=== PATIENT | male | born 1980 | race African-American/Black ===

== ENCOUNTER 2019-02-26 18:09 | Inpatient (IN) ==
[2019-02-26] MEDS ORDERED: KETOROLAC TROMETHAMINE 15 MG/ML VIAL IV STA (18:46)
[2019-02-26] MEDS ORDERED: ONDANSETRON INJ 2 MG/ML 2 ML VIAL IV STA (18:46)
[2019-02-26] MEDS ORDERED: SODIUM CHLORIDE 0.9% 1000ML 2,000 ML IV SCH (19:00)
[2019-02-26 19:07] LABS: Basophils # (auto) 0.02 K/uL (0-0.2); Basophils % (auto) 0.5 %; Eosinophils # (auto) 0.05 K/uL (0-0.5); Eosinophils % (auto) 1.2 %; Hematocrit (blood only) 32.1 % (42-52); Hemoglobin 11.1 g/dL (14.0-18.0); Immature Granulocytes # (auto) 0.02 K/uL (0.00-0.02); Immature Granulocytes % (auto) 0.5 %; Lymphocytes # (auto) 0.57 K/uL (1.2-3.4); Lymphocytes % (auto) 13.9 %; Mean Corpuscular Hgb Conc 34.6 g/dL (32-36); Mean Corpuscular Volume 77.7 fL (80-100); Mean Platelet Volume 10.6 fL (7.4-10.4); Monocytes # (auto) 0.38 K/uL (0.11-0.59); Monocytes % (auto) 9.2 %; Neutrophils # (auto) 3.07 K/uL (1.4-6.5); Neutrophils % (auto) 74.7 %; Platelet Count 148 K/uL (130-400); RDW Coefficient of Variation 13.8 % (11.5-14.5); RDW Standard Deviation 39.6 fL (36.4-46.3); Red Blood Count 4.13 M/uL (4.7-6.1); White Blood Count 4.11 K/uL (4.8-10.8)
[2019-02-26 19:22] LABS: INR 1.2 (0.9-1.1); Prothrombin Time 12.1 Seconds (9.0-12.0)
[2019-02-26 19:32] LABS: Albumin Globulin Ratio 0.4 (0.9-2); Albumin Level 2.3 gm/dl (3.4-5.0); BUN Creatinine Ratio 9.3 (10-20); Bilirubin,Total 0.3 mg/dl (0.2-1); Calcium 8.6 mg/dl (8.5-10.1); Creatinine Clr Calc Pharmacy 38.1 ml/min; Est GFR (African American) 43.4; Est GFR (Non-African American) 37.4; Globulin 5.6 gm/dl (2.5-4.0); Total Protein 7.9 gm/dl (6.4-8.2)
--- NOTE | 2019-02-26 19:43 | XRay Report ---
XR chest 1V portable CLINICAL HISTORY: weak dyspnea COMPARISON STUDY: No previous studies for comparison. FINDINGS: The bones soft tissues and hemidiaphragms are normal. The cardiomediastinal silhouette is n ormal. The lungs are clear. The pulmonary vasculature is normal. IMPRESSION: Negative chest. The above report was generated using voice recognition software. It may contain grammatical, syntax or spelling errors. Electronically signed by: Lisandro Yang M.D. 02/26/2019 7:41 PM
[2019-02-26 19:45] LABS: Beta-Hydroxybutyrate 5.54 mg/dl (0.2-2.81)
--- NOTE | 2019-02-26 21:07 | CT Scan Report ---
CT head/brain wo con CT DOSE: 537.48 mGy.cm HISTORY: Mental status change dizzy TECHNIQUE: Multiaxial CT images of the head were performed without the use of intravenous contrast. A dose lowering technique was utilized adhering to the principles of ALARA. Comparison: None. Findings: The paranasal sinuses and mastoid air cells are clear. The calvarium and skull base are int act. The ventricles and sulci are within normal limits. There is no mass, hematoma, midline shift, or acute infarct. Impression: No acute intracranial abnormality. The above report was generated using voice recognition software. It may contain grammatical, syntax or spelling errors. Electronically signed by: Lisandro Yang M.D. 02/26/2019 9:05 PM
--- NOTE | 2019-02-26 21:11 | CT Scan Report ---
CT abd pelvis wo con CT DOSE: 349.20 mGy.cm HISTORY: Pain. Nausea. abd pain TECHNIQUE: Multiaxial CT images of the abdomen and pelvis were performed without contrast. A dose lo wering technique was utilized adhering to the principles of ALARA. COMPARISON STUDY: None. FINDINGS: Lung bases are clear. Liver spleen and pancreas are unremarkable. Kidneys negative for hydronephrosis. There is a slight degree of perinephric fat infiltrative change bilaterally. No evidence for an obstructing urinary tract calculus. Bowel pattern is nonobstructive. Normal appendix. Mild bladder wall thickening. No bladder calcifications. No free fluid within the pelvic cul-de-sac. IMPRESSION: 1. Minimal to mild perinephric infiltrative change bilaterally. 2. Mild bladder wall thickening. 3. Evaluation for urinary tract infection, cystitis, pyelonephritis is recommended. 4. Study is otherwise negative. The above report was generated using voice recognition software. It may contain grammatical, syntax or spelling errors. Electronically signed by: Lisandro Yang M.D. 02/26/2019 9:10 PM
[2019-02-26 21:33] LABS: Appearance Urine Cloudy (Clear); Bacteria Urine Automated 4+ (Negative); Bilirubin Urine Negative (Negative); Blood Urine 3+ (Negative); Color Urine Yellow; Epithelial Cell Urine Auto 20-30 /lpf (0-5); Glucose Urine UA 3+ (Negative); Ketones Urine Negative (Negative); Leukocyte Esterase Urine Negative (Negative); Nitrite Urine Positive (Negative); Protein Urine 4+ (Negative); Specific Gravity Urine 1.027 (1.000-1.030); Urobilinogen Urine Negative (Negative); WBC Urine Automated >30 /hpf (0-5)
[2019-02-26] MEDS ORDERED: cefTRIAXone SODIUM 1,000 MG/50 ML BAG IV STA (21:56)
[2019-02-26] MEDS ORDERED: POTASSIUM CHLORIDE 20 MEQ TABCR PO STA (23:27)
--- NOTE | 2019-02-27 00:05 | History & Physical Report ---
Date of Service February 27, 2019 The patient was seen and examined on 02/26/19. Assessment & Plan (1) HIV (human immunodeficiency virus infection): Unknown status of CD4 count. Patient reports and being on medications for the last couple years. He plans on being in the [facility] for 2 weeks, then will be in [place] for 2 weeks, and then will be returning to his home in the [facility]. Unknown at this point how much his status is currently contributing to his symptoms. Present on Admission?: Yes (2) Acute kidney injury (nontraumatic): Creatinine upon admission is 2.15, with unknown baseline. Patient was asked if he had ever been told that he had abnormal kidney function, and he reports no, so this is presumed to be KRISTOPHER on that basis. He received 2 L normal saline in the ED, and will continue normal saline at 100 mils per hour. Repeat CBC with differential, basic metabolic panel and magnesium level in the a.m. Present on Admission?: Yes (3) Pyelonephritis: Patient has not have any overt urinary symptoms at this point. Urinalysis looks abnormal. CT suggests mild bladder wall thickening, with mild bilateral perinephric stranding. Suggestive of an enlarged prostate with possible mild chronic bladder outlet obstruction. Alva urine culture and sensitivity. Symptoms of nausea and vomiting may be secondary to systemic illness associated with pyelonephritis. Continue ceftriaxone begun in the ED. Infectious disease will be consulted to follow HIV state and infectious state in general. Present on Admission?: Yes (4) Hypokalemia: Give Klor-Con 40 mEq p.o. x1 tonight, and repeat laboratories in the a.m. Present on Admission?: Yes (5) Hyperglycemia: Patient is unaware of any history of diabetes. Glucose on admission laboratories was 313. We will place on Accu-Cheks before meals and at bedtime with NovoLog coverage per scale. We will check a hemoglobin A1c. Present on Admission?: Yes (6) Hypoalbuminemia: Albumin upon admission laboratories was 2.3. Does not show any signs of anasarca, localized edema or ascites. Present on Admission?: Yes (7) Anemia: Unsure whether this is a chronic or acute issue. Work-up is limited based on the amount of time patient has an area. We will Hemoccult her stools. Present on Admission?: Yes (8) Intractable nausea and vomiting: Zofran 4 mg IV every 6 hours as needed.. IV fluid rehydration as noted above. Present on Admission?: Yes (9) Hypertension: Hydralazine 10 mg IV every 4 hours as needed systolic blood pressure greater than 160. Start Cardizem 30 mg p.o. 4 times daily. Present on Admission?: Yes History of Present Illness Chief Complaint: Patient presents to the emergency department with complaint of nausea and vomiting that he presumed was associated with food intake, as he tends to be sensitive to a number of different types of foods. Primary Care Provider: NO PCP The patient is a 38-year-old male with PMH including HIV, not on medications for at least 2 years, with multiple food sensitivities, who presents to the emergency department with nausea and vomiting. He is from the [facility], and is presently working in the [employer] for 2 weeks, with plans to then work in the [place] area for 2 weeks, and will then be returning to [place]. He has noted some mild abdominal discomfort, but has no other complaints related to bowel function or urinary function. He has noted above, does have a history of recurrent nausea and vomiting associated with food sensitivities, but does not tend to have issues with either diarrhea or recurrent urinary tract infections. 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 Beliefs That Will Affect Care: None Current Living Situation: Other Current Living Situation Comment: mostly hotel room/mom's house Other Information That Helps Us Care for You: No Feels Safe at Home: Yes Safety Concerns: Feels Safe At This Time Smoking Status: Current some day smoker Tobacco Type: cigarettes Cigarettes Per Day: 1 Do You Dip or Chew Tobacco: No Second Hand Exposure: No Tobacco Cessation Education Requested by Patient: No Hx Alcohol Use: No Hx Substance Use: No Review of Systems Review of Systems: The patient denies chest pain, palpitations, shortness of breath, dyspnea on exertion, cough, lower extremity swelling, sore throat, fevers, chills, diarrhea, constipation, Blood in urine or stool, dysuria, urinary frequency or urgency, lightheadedness, dizziness, headache, memory loss, loss of consciousness, rash, abnormal bruising or bleeding, imbalance, focal or generalized weakness, numbness or tingling in arms or legs, generalized arthralgias or myalgias, back or neck pain, or night sweats. The review of systems is otherwise negative other than for that already noted above, and at least 10 systems have been reviewed. Physical Exam Physical Exam: The patient is awake, alert and oriented 3, well developed and well nourished, normocephalic and atraumatic, lying in bed and in no acute distress. HEENT--PERRL, EOMI, mucous membranes and oropharynx dry. Neck--supple. No JVD. No bruits. Thyroid normal, trachea midline, no adenopathy. Heart--normal S1 and S2. No murmurs, rubs or gallops. Lungs--clear bilaterally, no respiratory distress, no accessory muscle use. Abdomen--normal bowel sounds and soft. Nontender. Nondistended. Extremities--no cyanosis or clubbing. No edema. There are good distal pulses b/l. Dermatologic--normal skin turgor, normal color, no abnormal lymph nodes, no rash. Neurologic--cranial nerves II through XII grossly intact. Rheumatologic--normal range of motion. Psychiatric--normal affect. Results & Data Vital Signs (Past 12 Hours) Vital Signs Temp Pulse Pulse Resp BP BP Pulse Ox 02/26/19 23:02 89 16 176/129 H 100 02/26/19 22:06 87 18 175/115 H 99 02/26/19 20:29 83 18 160/109 H 97 02/26/19 18:12 97.5 F L 96 H 16 171/118 H 100 Laboratory Results Laboratory Results WBC 4.11 K/uL (4.8-10.8) L 02/26/19 18:57 RBC 4.13 M/uL (4.7-6.1) L 02/26/19 18:57 Hgb 11.1 g/dL (14.0-18.0) L 02/26/19 18:57 Hct 32.1 % (42-52) L 02/26/19 18:57 MCV 77.7 fL (80-100) L 02/26/19 18:57 MCH 26.9 pg (25-34) 02/26/19 18:57 MCHC 34.6 g/dL (32-36) 02/26/19 18:57 RDW Std Deviation 39.6 fL (36.4-46.3) 02/26/19 18:57 RDW Coeff of Jose 13.8 % (11.5-14.5) 02/26/19 18:57 Plt Count 148 K/uL (130-400) 02/26/19 18:57 MPV 10.6 fL (7.4-10.4) H 02/26/19 18:57 Immature Gran % (Auto) 0.5 % 02/26/19 18:57 Neut % (Auto) 74.7 % 02/26/19 18:57 Lymph % (Auto) 13.9 % 02/26/19 18:57 Bureau % (Auto) 9.2 % 02/26/19 18:57 Eos % (Auto) 1.2 % 02/26/19 18:57 Baso % (Auto) 0.5 % 02/26/19 18:57 Immature Gran # (Auto) 0.02 K/uL (0.00-0.02) 02/26/19 18:57 Neut # (Auto) 3.07 K/uL (1.4-6.5) 02/26/19 18:57 Lymph # (Auto) 0.57 K/uL (1.2-3.4) L 02/26/19 18:57 Bureau # (Auto) 0.38 K/uL (0.11-0.59) 02/26/19 18:57 Eos # (Auto) 0.05 K/uL (0-0.5) 02/26/19 18:57 Baso # (Auto) 0.02 K/uL (0-0.2) 02/26/19 18:57 PT 12.1 Seconds (9.0-12.0) H 02/26/19 18:57 INR 1.2 (0.9-1.1) H 02/26/19 18:57 Sodium 136 mmol/L (136-145) 02/26/19 18:57 Potassium 3.0 mmol/L (3.5-5.1) L 02/26/19 18:57 Chloride 102 mmol/L (98-107) 02/26/19 18:57 Carbon Dioxide 26 mmol/L (21-32) 02/26/19 18:57 Anion Gap 7.0 (3-11) 02/26/19 18:57 BUN 20 mg/dl (7-18) H 02/26/19 18:57 Creatinine 2.15 mg/dl (0.6-1.4) H 02/26/19 18:57 Est Cr Clr Drug Dosing 38.1 ml/min 02/26/19 18:57 Est GFR ( Amer) 43.4 02/26/19 18:57 Est GFR (Non-Af Amer) 37.4 02/26/19 18:57 BUN/Creatinine Ratio 9.3 (10-20) L 02/26/19 18:57 Glucose 313 mg/dl (70-99) H* 02/26/19 18:57 POC Glucose 288 (70-99) H 02/27/19 00:16 Calcium 8.6 mg/dl (8.5-10.1) 02/26/19 18:57 Total Bilirubin 0.3 mg/dl (0.2-1) 02/26/19 18:57 AST 21 U/L (15-37) 02/26/19 18:57 ALT 24 U/L (12-78) 02/26/19 18:57 Alkaline Phosphatase 143 U/L (45-117) H 02/26/19 18:57 Total Protein 7.9 gm/dl (6.4-8.2) 02/26/19 18:57 Albumin 2.3 gm/dl (3.4-5.0) L 02/26/19 18:57 Globulin 5.6 gm/dl (2.5-4.0) H 02/26/19 18:57 Albumin/Globulin Ratio 0.4 (0.9-2) L 02/26/19 18:57 Lipase 160 U/L (73-393) 02/26/19 18:57 Beta-Hydroxybutyric Acd 5.54 mg/dl (0.2-2.81) H 02/26/19 18:57 Urine Color Yellow 02/26/19 21:20 Urine Appearance Cloudy (Clear) H 02/26/19 21:20 Urine pH 6.0 (4.5-7.5) 02/26/19 21:20 Ur Specific Fertile 1.027 (1.000-1.030) 02/26/19 21:20 Urine Protein 4+ (Negative) H 02/26/19 21:20 Urine Glucose (UA) 3+ (Negative) H 02/26/19 21:20 Urine Ketones Negative (Negative) 02/26/19 21:20 Urine Blood 3+ (Negative) H 02/26/19 21:20 Urine Nitrite Positive (Negative) H 02/26/19 21:20 Urine Bilirubin Negative (Negative) 02/26/19 21:20 Urine Urobilinogen Negative (Negative) 02/26/19 21:20 Ur Leukocyte Esterase Negative (Negative) 02/26/19 21:20 Urine WBC (Auto) >30 /hpf (0-5) H 02/26/19 21:20 Urine RBC (Auto) 10-30 /hpf (0-4) H 02/26/19 21:20 U Hyaline Cast (Auto) 10-30 /lpf (0-5) H 02/26/19 21:20 U Epithel Cells (Auto) 20-30 /lpf (0-5) H 02/26/19 21:20 Urine Bacteria (Auto) 4+ (Negative) H 02/26/19 21:20 Urine Yeast Not Reportable 02/26/19 21:20 Diagnostic Findings [facility], [place] [phone] CT Scan Report Patient: BETTIE HARVEY Date: 02/26/19 MR#: [id number]: 115 DINO Acct ID:[id number]: Date: 1980ty Zip: [place] [address] Age: 38Location: ED Sex: M Room/Bed: Att Phy: Diagnosis: DISORIENTED, VOMITING, WEAKNESS Mary Phy: PCP,NO Service Date: 02/26/19 Fam Phy: Interpreting Phy: Lisandro Yang MD Admit Phy: Ordering Phy: Kwabena López DO cc: ~ CT head/brain wo con CT DOSE: 537.48 mGy.cm HISTORY: Mental status change dizzy TECHNIQUE: Multiaxial CT images of the head were performed without the use of intravenous contrast. A dose lowering technique was utilized adhering to the principles of ALARA. Comparison: None. Findings: The paranasal sinuses and mastoid air cells are clear. The calvarium and skull base are intact. The ventricles and sulci are within normal limits. There is no mass, hematoma, midline shift, or acute infarct. Impression: No acute intracranial abnormality. The above report was generated using voice recognition software. It may contain grammatical, syntax or spelling errors. Electronically signed by: Lisandro Yang M.D. 02/26/2019 9:05 PM Dictated: 02/26/192104 Transcribed: 02/26/192104 [facility], [place] [phone] XRay Report Patient: BETTIE HARVEY RAdmit Date: 02/26/19 MR#: [id number]: 115 SUN Acct ID:[id number]: Date: 1980[facility] Zip: [place] [address] Age: 38Location: ED Sex: M Room/Bed: Att Phy: Diagnosis: DISORIENTED, VOMITING, WEAKNESS Mary Phy: PCP,NO Service Date: 02/26/19 Fam Phy: Interpreting Phy: Lisandro Yang MD Admit Phy: Ordering Phy: Kwabena López DO cc: ~ XR chest 1V portable CLINICAL HISTORY: weak dyspnea COMPARISON STUDY: No previous studies for comparison. FINDINGS: The bones soft tissues and hemidiaphragms are normal. The cardiomediastinal silhouette is normal. The lungs are clear. The pulmonary vasculature is normal. IMPRESSION: Negative chest. The above report was generated using voice recognition software. It may contain grammatical, syntax or spelling errors. Electronically signed by: Lisandro Yang M.D. 02/26/2019 7:41 PM [facility], [place] [phone] CT Scan Report Patient: BETTIE HARVEY RAdmit Date: 02/26/19 MR#: [id number]: 115 DINO Acct ID:[id number]: Date: 1980[facility] Zip: [place] [address] Age: 38Location: ED Sex: M Room/Bed: Att Phy: Diagnosis: DISORIENTED, VOMITING, WEAKNESS Mary Phy: PCP,NO Service Date: 02/26/19 Fam Phy: Interpreting Phy: Lisandro Yang MD Admit Phy: Ordering Phy: Kwabena López DO cc: ~ CT abd pelvis wo con CT DOSE: 349.20 mGy.cm HISTORY: Pain. Nausea. abd pain TECHNIQUE: Multiaxial CT images of the abdomen and pelvis were performed without contrast. A dose lowering technique was utilized adhering to the principles of ALARA. COMPARISON STUDY: None. FINDINGS: Lung bases are clear. Liver spleen and pancreas are unremarkable. Kidneys negative for hydronephrosis. There is a slight degree of perinephric fat infiltrative change bilaterally. No evidence for an obstructing urinary tract calculus. Bowel pattern is nonobstructive. Normal appendix. Mild bladder wall thickening. No bladder calcifications. No free fluid within the pelvic cul-de-sac. IMPRESSION: 1. Minimal to mild perinephric infiltrative change bilaterally. 2. Mild bladder wall thickening. 3. Evaluation for urinary tract infection, cystitis, pyelonephritis is recommended. 4. Study is otherwise negative. The above report was generated using voice recognition software. It may contain grammatical, syntax or spelling errors. Electronically signed by: Lisandro Yang M.D. 02/26/2019 9:10 PM Dictated: 02/26/192107 Transcribed: 02/26/192107 Code Status & VTE Plan Code Status Full code VTE Prophylaxis Plan VTE Prophylaxis will be ordered: Yes
[2019-02-27] MEDS ORDERED: ACETAMINOPHEN 325 MG TAB PO PRN (00:19)
[2019-02-27] MEDS ORDERED: MAGNESIUM HYDROXIDE SUSP 30 ML UDC PO PRN (00:19)
[2019-02-27] MEDS ORDERED: ACETAMINOPHEN 1000 MG/100 ML IV IV PRN (00:19)
[2019-02-27] MEDS ORDERED: POLYETHYLENE (MIRALAX) 17 GM PACK PO PRN (00:19)
[2019-02-27] MEDS ORDERED: ZOLPIDEM TARTRATE 5 MG TAB PO PRN (00:19)
[2019-02-27] MEDS ORDERED: ONDANSETRON INJ 2 MG/ML 2 ML VIAL IV PRN (00:19)
[2019-02-27] MEDS ORDERED: dilTIAZem HCL 30 MG TAB PO ONE (00:20)
[2019-02-27] MEDS ORDERED: CARBOHYDRATES FOR HYPOGLYCEMIA PO PRN (00:45)
[2019-02-27] MEDS ORDERED: GLUCOSE 40% GEL 15 GM TUBE PO PRN (00:45)
[2019-02-27] MEDS ORDERED: GLUCAGON FOR INJ 1 MG VIAL SQ PRN (00:45)
[2019-02-27] MEDS ORDERED: DEXTROSE 50% 50 ML SYRINGE IV PRN (00:45)
[2019-02-27] MEDS ORDERED: GLUCOSE 10 TABS/TUBE PO PRN (00:45)
[2019-02-27] MEDS: SODIUM CHLORIDE 0.9% 1000ML 1,000 ML IV SCH ×3 (00:54→16:02)
[2019-02-27] MEDS: HydrALAZINE HCL 20 MG/ML VIAL IV PRN ×2 (00:58→15:57)
--- NOTE | 2019-02-27 01:24 | Emergency Department Note ---
Entered by Tim Caldwell acting as a scribe for History of Present Illness General Chief complaint: Vomiting Stated complaint: DISORIENTED, VOMITING Time Seen by Provider: 02/26/19 18:27 Source: patient History of Present Illness Provider complaint: Vomiting Onset (ago): day(s) 3 Location: abdomen Radiation: non-radiation Pain Consistency: + constant Relieved By: + none Exacerbated By: + none Associated symptoms: + headaches, + nausea/vomiting and + other (Abdominal pain, Dizziness); no chest pain, no cough and no shortness of breath The patient is a 38 year old male who presents to the Emergency Room with complaints of constant vomiting that has persisted over the past 3 days. The patient states the vomiting is not related to eating or drinking and that it occurs randomly. He has vomited 5 times today. He also is complaining of feeling dizzy and disoriented. He describes his dizziness as both room spinning and feeling as if he is going to pass out. He notes the room spinning dizziness is predominantly after he vomits and the feeling as though he is going to pass out has also been constant over the past 3 days. The patient also states he has in termittent abdominal pain and headaches but denies any chest pain, shortness of breath, or cough. He notes his last bowel movement was yesterday and it was normal. The patient has a history of HTN, DM and HIV. He does not take his HIV medication and does not know his CD4 count because he has not gotten it checked in a while. He also has not taken his blood pressure medication for 2 years. He does not take these medications because of problems he has encountered with his insurance. Home Medications Home Medications Medication Instructions Recorded Confirmed Type No Known Home Medications 02/26/19 02/26/19 History Allergies Allergy/AdvReac Type Severity Reaction Status Date / Time egg Allergy Severe SEVERE Verified 02/26/19 18:48 VOMITING Past Med/Surg History Medical History Diabetes mellitus HIV (human immunodeficiency virus infection) Hypertension Family History Other No pertinent family history in first degree relatives Social History Preferred Language: [place] Communication Ability: Effective Tip Inserter Required: No Beliefs That Will Affect Care: None Current Living Situation: Other Current Living Situation Comment: mostly hotel room/mom's house Other Information That Helps Us Care for You: No Feels Safe at Home: Yes Safety Concerns: Feels Safe At This Time Smoking Status: Current some day smoker Tobacco Type: cigarettes Cigarettes Per Day: 1 Do You Dip or Chew Tobacco: No Second Hand Exposure: No Tobacco Cessation Education Requested by Patient: No Hx Alcohol Use: No Hx Substance Use: No Review of Systems See HPI for pertinent positives & negatives. and A total of 10 systems reviewed and were otherwise negative Physical Exam Vital Signs Vital Signs - 24 hr 02/26/19 18:12 02/26/19 20:29 02/26/19 22:06 Temperature 36.4 C L Temperature Source Oral Sepsis Recent Fever Within 48 Hours No Sepsis New/Unexplained Change in Mental Status No Sepsis Action Taken by Nursing No Action Required Pulse Rate 96 H Pulse Rate [Right Finger] 83 87 Pulse Rhythm [Right Finger] Respiratory Rate 16 18 18 Respiratory Effort / Characteristics Non-Labored Spontaneous Respiratory Depth Normal Respiratory Pattern Blood Pressure 171/118 H Blood Pressure [Left Arm] Blood Pressure [Right Arm] 160/109 H 175/115 H Blood Pressure Mean 135 Blood Pressure Mean [Left Arm] Blood Pressure Mean [Right Arm] 126 135 Blood Pressure Position Sitting Blood Pressure Position [Left Arm] Blood Pressure Position [Right Arm] Pulse Oximetry 100 97 99 Oxygen Delivery Method Room Air 02/26/19 23:02 02/27/19 00:08 02/27/19 00:10 Temperature 36.3 C L Temperature Source Oral Sepsis Recent Fever Within 48 Hours Sepsis New/Unexplained Change in Mental Status Sepsis Action Taken by Nursing Pulse Rate 86 Pulse Rate [Right Finger] 89 79 Pulse Rhythm [Right Finger] Respiratory Rate 16 14 18 Respiratory Effort / Characteristics Respiratory Depth Respiratory Pattern Blood Pressure 167/114 H Blood Pressure [Left Arm] 171/110 H Blood Pressure [Right Arm] 176/129 H 178/124 H Blood Pressure Mean Blood Pressure Mean [Left Arm] 130 Blood Pressure Mean [Right Arm] 144 142 Blood Pressure Position Blood Pressure Position [Left Arm] Blood Pressure Position [Right Arm] Pulse Oximetry 100 100 100 Oxygen Delivery Method Room Air Room Air Room Air 02/27/19 00:20 Temperature 36.3 C L Temperature Source Oral Sepsis Recent Fever Within 48 Hours Sepsis New/Unexplained Change in Mental Status Sepsis Action Taken by Nursing Pulse Rate Pulse Rate [Right Finger] 79 Pulse Rhythm [Right Finger] Regular Respiratory Rate 18 Respiratory Effort / Characteristics Non-Labored Spontaneous Respiratory Depth Normal Respiratory Pattern Regular Blood Pressure Blood Pressure [Left Arm] 178/124 H Blood Pressure [Right Arm] 171/110 H Blood Pressure Mean Blood Pressure Mean [Left Arm] 142 Blood Pressure Mean [Right Arm] 130 Blood Pressure Position Blood Pressure Position [Left Arm] Sitting Blood Pressure Position [Right Arm] Sitting Pulse Oximetry Oxygen Delivery Method GENERAL: Sitting up in bed, alert, disheveled, well appearing, well nourished, no distress, non-toxic EYE EXAM: normal conjunctiva. PERRL and EOM's intact. OROPHARYNX: no exudate, no erythema, lips, buccal mucosa, and tongue normal and mucous membranes are moist NECK: supple, no nuchal rigidity, no adenopathy, non-tender LUNGS: Clear to auscultation. Normal chest wall mechanics HEART: no murmurs, S1 normal and S2 normal ABDOMEN: abdomen soft, non-tender, normo-active bowel, sounds, no masses, no rebound or guarding. BACK: Back is symmetrical on inspection and there is no deformity, no midline tenderness, no CVA tenderness. SKIN: no rashes and no bruising UPPER EXTREMITIES: upper extremities are grossly normal. LOWER EXTREMITIES: No pitting edema. NEURO EXAM: Normal sensorium, cranial nerves II-XII intact, normal speech, no weakness of arms, no weakness of legs. No drift. Finger to nose intact. Gross sensation intact. Course ED COURSE: Vital signs were reviewed and showed hypertension. The patients medical record was reviewed The above diagnostic studies were performed and reviewed. ED treatments and interventions as stated above. 1840: The patient was evaluated in room C06. A complete history and physical examination was performed. 2154: Upon reevaluation, the patient is resting in bed. I discussed my findings with the patient and he understands and agrees with the treatment plan. 0: I spoke to Dr. Puma Nolan [facility] about the patient's case and he is going to accept him for further evaluation. Based on the patients age, coexisting illnesses, exam and lab findings the decision to treat as an inpatient was made. The patient remained stable while under my care. The patient will be evaluated for further management. Consultations Consultation #1: I spoke to Dr. Puma Nolan [facility] Hospitalist about the patient's case and he is going to accept him for further evaluation. Time: 23:10 Administered Medications Hydralazine HCl (Hydralazine Hcl) 10 mg IV Q4H PRN PRN Reason: Blood Pressure - High Stop: 03/29/19 00:19 Last Admin: 02/27/19 00:58 Dose: 10 mg Documented by: [id number] Sodium Chloride (Nss 1000ml) 1,000 mls @ 125 mls/hr IV .Q8H JOEL Stop: 03/28/19 23:29 Last Admin: 02/27/19 00:54 Dose: 125 mls/hr Documented by: [id number] Discontinued Medications Diltiazem HCl (Cardizem) 30 mg PO NOW ONE Stop: 02/27/19 00:21 Last Admin: 02/27/19 00:54 Dose: 30 mg Documented by: [id number] Sodium Chloride (Nss 1000ml) 2,000 mls @ 999 mls/hr IV .Q2H1M JOEL Stop: 02/26/19 21:00 Last Infusion: 02/26/19 20:42 Dose: 0 mls/hr Documented by: [id number] Admin: 02/26/19 18:59 Dose: 999 mls/hr Documented by: [id number] Ceftriaxone Sodium (Rocephin) 1,000 mg in 50 mls @ 100 mls/hr IV NOW STA Stop: 02/26/19 22:25 Last Infusion: 02/26/19 22:48 Dose: 0 mls/hr Documented by: [id number] Admin: 02/26/19 22:06 Dose: 100 mls/hr Documented by: [id number] Ketorolac Tromethamine (Toradol) 15 mg IV NOW STA Stop: 02/26/19 18:47 Last Admin: 02/26/19 19:06 Dose: 15 mg Documented by: [id number] Ondansetron HCl (Zofran) 4 mg IV NOW STA Stop: 02/26/19 18:47 Last Admin: 02/26/19 19:07 Dose: 4 mg Documented by: [id number] Potassium Chloride (Klor-Con M20) 40 meq PO NOW STA Stop: 02/26/19 23:28 Last Admin: 02/26/19 23:35 Dose: 40 meq Documented by: [id number] Medical Decision Making Differential Diagnosis Differential diagnoses includes but is not limited to gastritis, peptic ulcer disease, GERD, gallbladder disease, pancreatitis, small bowel obstruction, acute coronary syndrome, pericarditis, ischemic bowel, irritable bowel disease, irritable bowel syndrome, appendicitis, diverticulitis, malignancy, hernia, urinary tract infection, torsion, perforation, trauma, infectious. Medical Records Attestation: I reviewed the patient's medical records. Home Medications Current Medication List: was personally reviewed by me Laboratory Data Attestation: I reviewed the patient's lab results. Result diagrams: 02/26/19 18:57 02/26/19 18:57 Lab Results 02/26/19 02/26/19 02/26/19 Range/Units 18:18 18:57 18:57 WBC 4.11 L (4.8-10.8) K/uL RBC 4.13 L (4.7-6.1) M/uL Hgb 11.1 L (14.0-18.0) g/dL Hct 32.1 L (42-52) % MCV 77.7 L (80-100) fL MCH 26.9 (25-34) pg MCHC 34.6 (32-36) g/dL RDW Std Deviation 39.6 (36.4-46.3) fL RDW Coeff of Jose 13.8 (11.5-14.5) % Plt Count 148 (130-400) K/uL MPV 10.6 H (7.4-10.4) fL Immature Gran % (Auto) 0.5 % Neut % (Auto) 74.7 % Lymph % (Auto) 13.9 % [place] % (Auto) 9.2 % Eos % (Auto) 1.2 % Baso % (Auto) 0.5 % Immature Gran # (Auto) 0.02 (0.00-0.02) K/uL Neut # (Auto) 3.07 (1.4-6.5) K/uL Lymph # (Auto) 0.57 L (1.2-3.4) K/uL [place] # (Auto) 0.38 (0.11-0.59) K/uL Eos # (Auto) 0.05 (0-0.5) K/uL Baso # (Auto) 0.02 (0-0.2) K/uL PT 12.1 H (9.0-12.0) Seconds INR 1.2 H (0.9-1.1) Sodium (136-145) mmol/L Potassium (3.5-5.1) mmol/L Chloride (98-107) mmol/L Carbon Dioxide (21-32) mmol/L Anion Gap (3-11) BUN (7-18) mg/dl Creatinine (0.6-1.4) mg/dl Est Cr Clr Drug Dosing ml/min Est GFR ( Amer) Est GFR (Non-Af Amer) BUN/Creatinine Ratio (10-20) Glucose (70-99) mg/dl POC Glucose 359 H* (70-99) Calcium (8.5-10.1) mg/dl Total Bilirubin (0.2-1) mg/dl AST (15-37) U/L ALT (12-78) U/L Alkaline Phosphatase (45-117) U/L Total Protein (6.4-8.2) gm/dl Albumin (3.4-5.0) gm/dl Globulin (2.5-4.0) gm/dl Albumin/Globulin Ratio (0.9-2) Lipase (73-393) U/L Beta-Hydroxybutyric Acd (0.2-2.81) mg/dl Urine Color Urine Appearance (Clear) Urine pH (4.5-7.5) Ur Specific [place] (1.000-1.030) Urine Protein (Negative) Urine Glucose (UA) (Negative) Urine Ketones (Negative) Urine Blood (Negative) Urine Nitrite (Negative) Urine Bilirubin (Negative) Urine Urobilinogen (Negative) Ur Leukocyte Esterase (Negative) Urine WBC (Auto) (0-5) /hpf Urine RBC (Auto) (0-4) /hpf U Hyaline Cast (Auto) (0-5) /lpf U Epithel Cells (Auto) (0-5) /lpf Urine Bacteria (Auto) (Negative) Urine Yeast 02/26/19 02/26/19 02/27/19 Range/Units 18:57 21:20 00:16 WBC (4.8-10.8) K/uL RBC (4.7-6.1) M/uL Hgb (14.0-18.0) g/dL Hct (42-52) % MCV (80-100) fL MCH (25-34) pg MCHC (32-36) g/dL RDW Std Deviation (36.4-46.3) fL RDW Coeff of Jose (11.5-14.5) % Plt Count (130-400) K/uL MPV (7.4-10.4) fL Immature Gran % (Auto) % Neut % (Auto) % Lymph % (Auto) % [place] % (Auto) % Eos % (Auto) % Baso % (Auto) % Immature Gran # (Auto) (0.00-0.02) K/uL Neut # (Auto) (1.4-6.5) K/uL Lymph # (Auto) (1.2-3.4) K/uL [place] # (Auto) (0.11-0.59) K/uL Eos # (Auto) (0-0.5) K/uL Baso # (Auto) (0-0.2) K/uL PT (9.0-12.0) Seconds INR (0.9-1.1) Sodium 136 (136-145) mmol/L Potassium 3.0 L (3.5-5.1) mmol/L Chloride 102 (98-107) mmol/L Carbon Dioxide 26 (21-32) mmol/L Anion Gap 7.0 (3-11) BUN 20 H (7-18) mg/dl Creatinine 2.15 H (0.6-1.4) mg/dl Est Cr Clr Drug Dosing 38.1 ml/min Est GFR ( Amer) 43.4 Est GFR (Non-Af Amer) 37.4 BUN/Creatinine Ratio 9.3 L (10-20) Glucose 313 H* (70-99) mg/dl POC Glucose 288 H (70-99) Calcium 8.6 (8.5-10.1) mg/dl Total Bilirubin 0.3 (0.2-1) mg/dl AST 21 (15-37) U/L ALT 24 (12-78) U/L Alkaline Phosphatase 143 H (45-117) U/L Total Protein 7.9 (6.4-8.2) gm/dl Albumin 2.3 L (3.4-5.0) gm/dl Globulin 5.6 H (2.5-4.0) gm/dl Albumin/Globulin Ratio 0.4 L (0.9-2) Lipase 160 (73-393) U/L Beta-Hydroxybutyric Acd 5.54 H (0.2-2.81) mg/dl Urine Color Yellow Urine Appearance Cloudy H (Clear) Urine pH 6.0 (4.5-7.5) Ur Specific [place] 1.027 (1.000-1.030) Urine Protein 4+ H (Negative) Urine Glucose (UA) 3+ H (Negative) Urine Ketones Negative (Negative) Urine Blood 3+ H (Negative) Urine Nitrite Positive H (Negative) Urine Bilirubin Negative (Negative) Urine Urobilinogen Negative (Negative) Ur Leukocyte Esterase Negative (Negative) Urine WBC (Auto) >30 H (0-5) /hpf Urine RBC (Auto) 10-30 H (0-4) /hpf U Hyaline Cast (Auto) 10-30 H (0-5) /lpf U Epithel Cells (Auto) 20-30 H (0-5) /lpf Urine Bacteria (Auto) 4+ H (Negative) Urine Yeast Not Reportable Imaging Data Radiologist's Impression: Radiology results as stated below per my review and the radiologist's interpretation: XR chest 1V portable CLINICAL HISTORY: weak dyspnea COMPARISON STUDY: No previous studies for comparison. FINDINGS: The bones soft tissues and hemidiaphragms are normal. The cardiomediastinal silhouette is normal. The lungs are clear. The pulmonary vasculature is normal. IMPRESSION: Negative chest. The above report was generated using voice recognition software. It may contain grammatical, syntax or spelling errors. Electronically signed by: Lisandro Yang M.D. 02/26/2019 7:[address] head/brain wo con CT DOSE: 537.48 mGy.cm HISTORY: Mental status change dizzy TECHNIQUE: Multiaxial CT images of the head were performed without the use of intravenous contrast. A dose lowering technique was utilized adhering to the principles of ALARA. Comparison: None. Findings: The paranasal sinuses and mastoid air cells are clear. The calvarium and skull base are intact. The ventricles and sulci are within normal limits. There is no mass, hematoma, midline shift, or acute infarct. Impression: No acute intracranial abnormality. The above report was generated using voice recognition software. It may contain grammatical, syntax or spelling errors. Electronically signed by: Lisandro Yang M.D. 02/26/2019 9:[address] abd pelvis wo con CT DOSE: 349.20 mGy.cm HISTORY: Pain. Nausea. abd pain TECHNIQUE: Multiaxial CT images of the abdomen and pelvis were performed without contrast. A dose lowering technique was utilized adhering to the principles of ALARA. COMPARISON STUDY: None. FINDINGS: Lung bases are clear. Liver spleen and pancreas are unremarkable. Kidneys negative for hydronephrosis. There is a slight degree of perinephric fat infiltrative change bilaterally. No evidence for an obstructing urinary tract calculus. Bowel pattern is nonobstructive. Normal appendix. Mild bladder wall thickening. No bladder calcifications. No free fluid within the pelvic cul-de-sac. IMPRESSION: 1. Minimal to mild perinephric infiltrative change bilaterally. 2. Mild bladder wall thickening. 3. Evaluation for urinary tract infection, cystitis, pyelonephritis is recommended. 4. Study is otherwise negative. The above report was generated using voice recognition software. It may contain grammatical, syntax or spelling errors. Electronically signed by: Lisandro Yang M.D. 02/26/2019 9:10 PM Blood Pressure Blood Pressure Findings: Elevated blood pressure Blood Pressure Disposition: further management by hospitalist CHRISTIE Narrative Patient is a 38-year-old noncompliant male with a past medical history of HIV and hypertension unaware of CD4 count has not taken medications for the past 2 years that presents the ER for vomiting and abdominal pain. He denies any chest pain or shortness of breath. He was hypertensive on the ER. Labs were obtained and showed no significant leukocytosis or anemia. INR was unremarkable. BMP with mild hypokalemia consistent with vomiting. Creatinine was elevated at 2.15 uncertain at baseline. Glucose was slightly elevated at 300 as well. Lipase was normal. Urine with nitrates whites in combination with a CT which shows stranding around bilateral kidneys consistent with pyelonephritis. Patient was given IV fluids and IV Rocephin. Patient was up to the bedside. He had no other complaints at this time and is been to the hospitalist for pyelonephritis with nausea and vomiting. Impression & Plan Acute pyelonephritis, Acute kidney injury Discharge Plan Visit Data *Final* Discharge Date/Time: 02/27/19 00:08 Chief Complaint: Vomiting Stated Complaint: DISORIENTED, VOMITING ED Provider: Kwabena López Discharge Problem: Acute pyelonephritis, Acute kidney injury Patient Disposition: Admitted As Inpatient Discharge Instructions Interventions: ED Discharge Assessment Last Done: 02/27/19 00:08 The scribe's documentation has been prepared under my direction and personally reviewed by me in its entirety. I confirm that the note above accurately reflects all work, treatment, procedures, and medical decision making performed by me.
[2019-02-27] MEDS ORDERED: PNEUMOCOCCAL ADMINISTRATION CHARGE ONE (08:00)
[2019-02-27] MEDS ORDERED: PNEUMOCOCCAL POLYSACCHARIDES 25 MCG/0.5 ML VIAL/SYR IM ONE (08:00)
[2019-02-27] MEDS: dilTIAZem HCL 30 MG TAB PO SCH ×3 (08:18→17:18)
[2019-02-27 08:27] LABS: Estimated Average Glucose 298 mg/dl
[2019-02-27 08:41] LABS: Basophils # (auto) 0.02 K/uL (0-0.2); Basophils % (auto) 0.6 %; Eosinophils # (auto) 0.07 K/uL (0-0.5); Eosinophils % (auto) 1.9 %; Hematocrit (blood only) 28.8 % (42-52); Immature Granulocytes # (auto) 0.03 K/uL (0.00-0.02); Immature Granulocytes % (auto) 0.8 %; Lymphocytes # (auto) 0.94 K/uL (1.2-3.4); Mean Corpuscular Hgb Conc 34.7 g/dL (32-36); Mean Corpuscular Volume 77.8 fL (80-100); Mean Platelet Volume 10.5 fL (7.4-10.4); Monocytes # (auto) 0.27 K/uL (0.11-0.59); Monocytes % (auto) 7.5 %; Neutrophils # (auto) 2.29 K/uL (1.4-6.5); Neutrophils % (auto) 63.2 %; Platelet Count 164 K/uL (130-400); RDW Standard Deviation 40.1 fL (36.4-46.3); White Blood Count 3.62 K/uL (4.8-10.8)
[2019-02-27 08:44] LABS: BUN Creatinine Ratio 9.8 (10-20); Calcium 8.2 mg/dl (8.5-10.1); Creatinine Clr Calc Pharmacy 63.7 ml/min; Est GFR (African American) 53.4; Est GFR (Non-African American) 46.1; Potassium 3.6 mmol/L (3.5-5.1)
[2019-02-27] MEDS: INSULIN ASPART 100 UNITS/ML 3 ML PEN SC SCH ×4 (08:49→20:26)
--- NOTE | 2019-02-27 10:35 | Infectious Disease Consult ---
Date of Consultation February 27, 2019 Assessment & Plan (1) HIV (human immunodeficiency virus infection): 38-year-old male with HIV infection with possible pyelonephritis, not currently on antiretroviral therapy. Patient will be treated with IV ceftriaxone pending further culture results. Would obtain CD4 count and viral load, but would not institute antiretroviral therapy until patient has arranged stable medical follow-up. Case discussed with hospitalist. Will follow. (2) Pyelonephritis: History of Present Illness Reason for Consultation: HIV, pyelonephritis Attending Physician: Kennedy Greenfield MD History of Present Illness 38-year-old male with history of HIV infection, previously maintained on Strilbid with good CD4 count and undetectable viral load, but off medications for 2 years because of insurance issues. He presented to the emergency room with 3-day history of nausea and vomiting with mild persistent abdominal pain. Was found to have evidence of renal insufficiency with elevated creatinine, and CT scan of the abdomen was suggestive of possible pyelonephritis. Patient was started empirically on IV ceftriaxone. Cultures are pending. No report of fever or urinary complaints. No shortness of breath or cough. Pain currently 1 out of 10 in intensity lower abdomen. Not exacerbated by movement. Allergies Allergy/AdvReac Type Severity Reaction Status Date / Time egg Allergy Severe SEVERE Verified 02/26/19 18:48 VOMITING Home Medications Home Medications Medication Instructions Recorded Confirmed Type No Known Home Medications 02/26/19 02/26/19 History Patient History Medical History Diabetes mellitus HIV (human immunodeficiency virus infection) Hypertension Family History Other No pertinent family history in first degree relatives Social History Preferred Language: [place]ian Communication Ability: Effective Chemical Waste Management Technician Required: No Beliefs That Will Affect Care: None Current Living Situation: Other Current Living Situation Comment: mostly hotel room/mom's house Other Information That Helps Us Care for You: No Feels Safe at Home: Yes Safety Concerns: Feels Safe At This Time Smoking Status: Current some day smoker Tobacco Type: cigarettes Cigarettes Per Day: 1 Do You Dip or Chew Tobacco: No Second Hand Exposure: No Tobacco Cessation Education Requested by Patient: No Hx Alcohol Use: No Hx Substance Use: No Review of Systems Review of Systems: All systems reviewed & are unremarkable except as noted in HPI & below Physical Exam Constitutional: WD/WN, vitals as above comfortable; no acute distress Eyes: PERRL, conjunctivae normal, anicteric sclerae ENMT: external ear and nose normal, oropharynx normal Neck: trachea midline, no thyromegaly neck nontender Respiratory: normal respiratory effort, lungs clear to auscultation normal percussion; does not use accessory muscles Cardiovascular: Rate/Rhythm: regular rate and regular rhythm Heart Sounds: normal S1 and normal S2; no gallop, no murmur and no cardiac rub Vessels: normal peripheral pulses; no JVD Gastrointestinal (Abdomen): normal bowel sounds, soft, nontender, no hepatosplenomegaly Musculoskeletal: no cyanosis or clubbing, extremities motor strength 5/5 Spine: thoracic spine normal to inspection and lumbar spine normal to inspection; no cervical spinal tenderness Skin: no rashes, warm and dry normal turgor; no lesions Neurologic: patellar DTR's 2+ bilat, sensation intact no focal motor deficits Psychiatric: A+Ox3, euthymic affect Orientation: cooperative Lymphatic: no cervical or axillary lymphadenopathy no inguinal lymphadenopathy Results & Data Vital Signs (Past 12 Hours) Vital Signs Temp Pulse Pulse Resp BP BP BP 02/27/19 07:23 36.4 C L 82 18 154/98 H 02/27/19 01:53 80 159/105 H 02/27/19 00:20 36.3 C L 79 18 178/124 H 171/110 H 02/27/19 00:10 36.3 C L 79 18 171/110 H 178/124 H 02/27/19 00:08 86 14 167/114 H 02/26/19 23:02 89 16 176/129 H Pulse Ox 02/27/19 07:23 98 02/27/19 01:53 02/27/19 00:20 02/27/19 00:10 100 02/27/19 00:08 100 02/26/19 23:02 100 Laboratory Results Short CBC 02/26/19 02/27/19 Range/Units 18:57 07:40 WBC 4.11 L 3.62 L (4.8-10.8) K/uL Hgb 11.1 L 10.0 L (14.0-18.0) g/dL Hct 32.1 L 28.8 L (42-52) % Plt Count 148 164 (130-400) K/uL BMP 02/26/19 02/27/19 18:57 07:40 Sodium 136 138 Potassium 3.0 L 3.6 D Chloride 102 107 Carbon Dioxide 26 26 BUN 20 H 18 Creatinine 2.15 H 1.81 H D Glucose 313 H* 128 H Calcium 8.6 8.2 L Liver Function 02/26/19 Range/Units 18:57 Total Bilirubin 0.3 (0.2-1) mg/dl AST 21 (15-37) U/L ALT 24 (12-78) U/L Alkaline Phosphatase 143 H (45-117) U/L Albumin 2.3 L (3.4-5.0) gm/dl Urine 02/26/19 Range/Units 21:20 Urine Color Yellow Urine Appearance Cloudy H (Clear) Urine pH 6.0 (4.5-7.5) Ur Specific [place] 1.027 (1.000-1.030) Urine Protein 4+ H (Negative) Urine Glucose (UA) 3+ H (Negative) Diagnostic Findings CT abd pelvis wo con CT DOSE: 349.20 mGy.cm HISTORY: Pain. Nausea. abd pain TECHNIQUE: Multiaxial CT images of the abdomen and pelvis were performed without contrast. A dose lowering technique was utilized adhering to the principles of ALARA. COMPARISON STUDY: None. FINDINGS: Lung bases are clear. Liver spleen and pancreas are unremarkable. Kidneys negative for hydronephrosis. There is a slight degree of perinephric fat infiltrative change bilaterally. No evidence for an obstructing urinary tract calculus. Bowel pattern is nonobstructive. Normal appendix. Mild bladder wall thickening. No bladder calcifications. No free fluid within the pelvic cul-de-sac. IMPRESSION: 1. Minimal to mild perinephric infiltrative change bilaterally. 2. Mild bladder wall thickening. 3. Evaluation for urinary tract infection, cystitis, pyelonephritis is recommended. 4. Study is otherwise negative. The above report was generated using voice recognition software. It may contain grammatical, syntax or spelling errors. Electronically signed by: Lisandro Yang M.D. 02/26/2019 9:10 PM Dictated: 02/26/19 2106
--- NOTE | 2019-02-27 17:11 | Hospitalist Progress Note ---
Date of Service February 27, 2019 Assessment & Plan (1) Pyelonephritis: Patient had not had any overt urinary symptoms on admission. Urinalysis looks abnormal. CT a/p on admission suggested mild bladder wall thickening, with mild bilateral perinephric stranding. - Continue ceftriaxone - Follow urine culture (2) Acute kidney injury (nontraumatic): Admission, Cr on admission was 2.15, with unknown baseline. No known CKD, so this is presumed to be KRISTOPHER on that basis. - On 02/27, Cr improved to 1.8. (3) HIV (human immunodeficiency virus infection): Was on Stribild for ~5 years, but then lost insurance and has been off any ART for ~2 years. Per patient, his viral load was undetectable and CD4 count was good while in ART. Unknown status of CD4 count at this time. - Discussed with Dr. Davenport; no role for inpatient initiation of ART as he may not be able to continue after discharge. - Will get CD4 count and viral load, though patient may not be here for results. If he decides to settle in [place], this would be beneficial. (4) Diabetes: A1c of 12.0% on admission. Reports it has been 13-14% and has been on metformin in the past. As low as 7% years ago. - Sliding scale insulin - Discharge on metformin (5) Anemia: Likely chronic with baseline probably ~10-11. - Monitor hgb (6) Hypertension: History of HTN. - Will start ACEi given his likely CKD for renal protection. - Hydralazine PRN (7) DVT prophylaxis: Lovenox 40mg daily Subjective Nausea has substantially improved. No major complaints at this time. Review of Systems Review of Systems: All systems reviewed & are unremarkable except as noted in HPI & below Physical Exam Constitutional: WD/WN, vitals as above comfortable; no acute distress Eyes: PERRL, conjunctivae normal, anicteric sclerae ENMT: external ear and nose normal, oropharynx normal Neck: trachea midline, no thyromegaly neck nontender Respiratory: normal respiratory effort, lungs clear to auscultation normal percussion; does not use accessory muscles Cardiovascular: Rate/Rhythm: regular rate and regular rhythm Heart Sounds: normal S1 and normal S2; no gallop, no murmur and no cardiac rub Vessels: normal peripheral pulses; no JVD Gastrointestinal (Abdomen): normal bowel sounds, soft, nontender, no hepatosplenomegaly Musculoskeletal: no cyanosis or clubbing, extremities motor strength 5/5 Spine: thoracic spine normal to inspection and lumbar spine normal to inspection; no cervical spinal tenderness Skin: no rashes, warm and dry normal turgor; no lesions Neurologic: patellar DTR's 2+ bilat, sensation intact no focal motor deficits Psychiatric: A+Ox3, euthymic affect Orientation: cooperative Lymphatic: no cervical or axillary lymphadenopathy no inguinal lymphadenopathy Results & Data Vital Signs (Past 12 Hours) Vital Signs Temp Pulse Resp BP Pulse Ox 02/27/19 15:28 36.5 C 88 16 161/105 H 99 02/27/19 07:23 36.4 C L 82 18 154/98 H 98
[2019-02-27] MEDS ORDERED: HydrALAZINE HCL 20 MG/ML VIAL IV PRN (17:21)
[2019-02-27] MEDS ORDERED: cefTRIAXone SODIUM 1,000 MG in DEXTROSE 5% 50 ML IV SCH (21:00)
[2019-02-28 07:26] VITALS: PULSE 95; TEMP 98.2; O2SAT 98
[2019-02-28 07:38] LABS: Basophils # (auto) 0.01 K/uL (0-0.2); Basophils % (auto) 0.4 %; Eosinophils # (auto) 0.09 K/uL (0-0.5); Eosinophils % (auto) 3.4 %; Hematocrit (blood only) 28.5 % (42-52); Hemoglobin 9.9 g/dL (14.0-18.0); Immature Granulocytes # (auto) 0.02 K/uL (0.00-0.02); Immature Granulocytes % (auto) 0.8 %; Lymphocytes # (auto) 0.85 K/uL (1.2-3.4); Mean Corpuscular Hgb Conc 34.7 g/dL (32-36); Mean Corpuscular Volume 77.9 fL (80-100); Mean Platelet Volume 10.5 fL (7.4-10.4); Monocytes # (auto) 0.26 K/uL (0.11-0.59); Monocytes % (auto) 9.8 %; Neutrophils # (auto) 1.43 K/uL (1.4-6.5); Neutrophils % (auto) 53.6 %; Platelet Count 160 K/uL (130-400); RDW Standard Deviation 40.1 fL (36.4-46.3); Red Blood Count 3.66 M/uL (4.7-6.1); White Blood Count 2.66 K/uL (4.8-10.8)
[2019-02-28] MEDS: INSULIN ASPART 100 UNITS/ML 3 ML PEN SC SCH ×2 (08:07→12:12)
[2019-02-28 08:10] LABS: Calcium 7.9 mg/dl (8.5-10.1); Creatinine Clr Calc Pharmacy 66.7 ml/min; Est GFR (African American) 56.4; Est GFR (Non-African American) 48.7; Magnesium 1.8 mg/dl (1.8-2.4); Potassium 3.8 mmol/L (3.5-5.1)
[2019-02-28 08:15] LABS: Ferritin 590.7 ng/ml (8-388)
[2019-02-28] MEDS ORDERED: ENOXAPARIN INJ 40 MG/0.4 ML SYR SQ SCH (09:00)
[2019-02-28] MEDS ORDERED: LISINOPRIL 20 MG TAB PO SCH (09:00)
--- NOTE | 2019-02-28 10:37 | Infectious Disease Progress Nt ---
Date of Service February 28, 2019 Assessment & Plan (1) HIV (human immunodeficiency virus infection): 38-year-old male with HIV infection with possible pyelonephritis, not currently on antiretroviral therapy. Culture positive for alpha strep. Patient likely can be transitioned to oral amoxicillin 500 mg 3 times daily likely in the range of 2 to 3 weeks for pyelonephritis. Await CD4 count and viral load. Will follow. (2) Pyelonephritis: Subjective Patient is here to follow-up for HIV infection and pyelonephritis. Offers no new complaints today. Remains afebrile. Urine culture growing streptococcal species. Review of Systems Review of Systems: All systems reviewed & are unremarkable except as noted in HPI & below Physical Exam Constitutional: WD/WN, vitals as above comfortable; no acute distress Eyes: PERRL, conjunctivae normal, anicteric sclerae ENMT: external ear and nose normal, oropharynx normal Neck: trachea midline, no thyromegaly neck nontender Respiratory: normal respiratory effort, lungs clear to auscultation normal percussion; does not use accessory muscles Cardiovascular: Rate/Rhythm: regular rate and regular rhythm Heart Sounds: normal S1 and normal S2; no gallop, no murmur and no cardiac rub Vessels: normal peripheral pulses; no JVD Gastrointestinal (Abdomen): normal bowel sounds, soft, nontender, no hepatosplenomegaly Musculoskeletal: no cyanosis or clubbing, extremities motor strength 5/5 Spine: thoracic spine normal to inspection and lumbar spine normal to inspection; no cervical spinal tenderness Skin: no rashes, warm and dry normal turgor; no lesions Neurologic: patellar DTR's 2+ bilat, sensation intact no focal motor deficits Psychiatric: A+Ox3, euthymic affect Orientation: cooperative Lymphatic: no cervical or axillary lymphadenopathy no inguinal lymphadenopathy Results & Data Vital Signs (Past 12 Hours) Vital Signs Temp Pulse Resp BP Pulse Ox 02/28/19 07:25 36.8 C 95 H 18 160/106 H 98 02/27/19 23:00 36.7 C 88 18 150/97 H 97 Laboratory Results Short CBC 02/28/19 Range/Units 06:59 WBC 2.66 L (4.8-10.8) K/uL Hgb 9.9 L (14.0-18.0) g/dL Hct 28.5 L (42-52) % Plt Count 160 (130-400) K/uL BMP 02/28/19 06:59 Sodium 138 Potassium 3.8 Chloride 108 H Carbon Dioxide 25 BUN 16 Creatinine 1.73 H Glucose 204 H Calcium 7.9 L Diagnostic Findings Microbiology 02/26/19 21:20 Urine,Clean Catch Urine Culture - Preliminary Alpha strep. not enterococcus
[2019-02-28 13:17] VITALS: BP 171/110
--- NOTE | 2019-02-28 17:43 | Discharge Summary ---
Date of Service February 28, 2019 Admission HPI Per Admitting Provider The patient is a 38-year-old male with PMH including HIV, not on medications for at least 2 years, with multiple food sensitivities, who presents to the emergency department with nausea and vomiting. He is from the [facility], and is presently working in the [employer] at [employer] for 2 weeks, with plans to then work in the [place] area for 2 weeks, and will then be returning to [place]. He has noted some mild abdominal discomfort, but has no other complaints related to bowel function or urinary function. He has noted above, does have a history of recurrent nausea and vomiting associated with food sensitivities, but does not tend to have issues with either diarrhea or recurrent urinary tract infections. Principal Diagnosis Pyelonephritis Discharge Exam Constitutional WD/WN, vitals as above comfortable; no acute distress Eyes PERRL, conjunctivae normal, anicteric sclerae ENMT external ear and nose normal, oropharynx normal Neck trachea midline, no thyromegaly neck nontender Respiratory normal respiratory effort, lungs clear to auscultation normal percussion; does not use accessory muscles Cardiovascular Rate/Rhythm: regular rate and regular rhythm Heart Sounds: normal S1 and normal S2; no gallop, no murmur and no cardiac rub Vessels: normal peripheral pulses; no JVD Gastrointestinal (Abdomen) normal bowel sounds, soft, nontender, no hepatosplenomegaly Musculoskeletal no cyanosis or clubbing, extremities motor strength 5/5 Spine: thoracic spine normal to inspection and lumbar spine normal to inspection; no cervical spinal tenderness Skin no rashes, warm and dry normal turgor; no lesions Neurologic patellar DTR's 2+ bilat, sensation intact no focal motor deficits Psychiatric A+Ox3, euthymic affect Orientation: cooperative Lymphatic no cervical or axillary lymphadenopathy no inguinal lymphadenopathy Discharge Data Allergies Allergy/AdvReac Type Severity Reaction Status Date / Time egg Allergy Severe SEVERE Verified 02/26/19 18:48 VOMITING Consultations 02/26/19 22:02 ED Decision to Admit Stat 02/27/19 00:19 Consult Case Management - Discharge Planning Routine 02/27/19 01:24 Consult Infectious Diseases Routine Ordered Studies 02/26/19 18:46 CT head/brain wo con Stat 02/26/19 20:11 CT abd pelvis wo con Stat Hospital Course (1) Pyelonephritis: Patient had not had any overt urinary symptoms on admission. CT a/p on admission suggested mild bladder wall thickening, with mild bilateral perinephric stranding. Urine culture grew alpha-hemolytic Strep spc. - Continued ceftriaxone while inpatient - Discharged on 7-day course of cephelexin for a 10-day total duration (2) Acute kidney injury (nontraumatic): Admission, Cr on admission was 2.15, with unknown baseline. No known CKD, so this is presumed to be KRISTOPHER on that basis. - On 02/27, Cr improved to 1.8, then 1.7. Given his HTN, DM, and HIV, I actually think this is probably close to his baseline. (3) HIV (human immunodeficiency virus infection): Was on Stribild for ~5 years, but then lost insurance and has been off any ART for ~2 years. Per patient, his viral load was undetectable and CD4 count was good while in ART. Unknown status of CD4 count at this time. - Discussed with Dr. Davenport; no role for inpatient initiation of ART as he may not be able to continue after discharge. - Will get CD4 count and viral load, though patient may not be here for results. If he decides to settle in [place] this would be beneficial. (4) Diabetes: A1c of 12.0% on admission. Reports it has been 13-14% and has been on metformin in the past. As low as 7% years ago. - Sliding scale insulin - Discharged on metformin (5) Anemia: Likely chronic with baseline probably ~10-11. - Hgb stable at 10 while inpatient. (6) Hypertension: History of HTN. - Started ACEi given his likely CKD for renal protection. (7) DVT prophylaxis: Lovenox 40mg daily Total Time Total Time Spent Total Time Spent (In Minutes): 35 Discharge Plan Discharge Items Patient Disposition: Home - Self-Care Reason For Visit: VOMITING, UTI, KRISTOPHER, PYELO B/L Discharge Diagnosis: Pyelonephritis Discharge Goals: Decrease discomfort, Diagnostic testing and Prevent disease Activity: Resume your previous activity Non-emergency contact: Primary Care Provider Call non-emergency contact if: your symptoms worsen, your pain is not controlled and your temperature is above 100.5 Follow-up/Referrals: PCP,NO [Primary Care Provider] - Diet: Regular Addtl Provider Instructions: Mr. Soliz, You were admitted to the hospital with nausea and vomiting due to a bladder and early kidney infection. You got better quickly with antibiotics. We had infectious disease see you, and are sending you out with a course of antibiotics for one week. Please take this antibiotic 3 times per day until it is all gone. Even if you feel completely fine, please finish the antibiotic as you need to full course to fully kill all the bacteria in the bladder. We are also restarting a diabetes medication and a blood pressure medication to help control these. We can give you 30-days worth, and encourage you to follow up with a PCP in [facility], or your home in [place]. All your medications were sent to the [facility] at [address] [place] [address], [place]. Take your first dose of antibiotic tonight before bedtime, then 3 times per day after that. Prescriptions: New lisinopril 20 mg Tablet 20 mg PO QAM Qty: 30 RF: 0 metformin 500 mg tablet 500 mg PO BID Qty: 60 RF: 0 cephalexin 500 mg capsule 500 mg PO TID 7 Days Qty: 21 RF: 0 No Action No Known Home Medications RF: 0 Stand-Alone Forms: [facility] Discharge Orders: Discharge Order (Routine); Ordered 02/28/19 Ordered By: Kennedy Greenfield Admission Data Admit Date/Time: 02/26/19 23:23 Attending Provider: Kennedy Greenfield Admit Provider: Scott Bartholomew Primary Care Provider: PCP,NO Other Providers: Andrei Davenport ; Kennedy Greenfield Service: Medical Other Interventions: Discharge Summary Assessment (RN) Last Done: 02/28/19 13:15 DC Date/Time DO NOT enter until pt leaves facility: 02/28/19 13:53
== END 2019-02-28 13:53 | disposition home or self-care (01) | DRG 690 ==
LOC: ED 18:09 → 2W 23:23 → SUATTDRO 23:23 → 2W 02-27 00:08